=== PATIENT | female | born 1985 | race Two or more races ===

== ENCOUNTER 2024-11-11 18:59 | Emergency (ER) | payer BC, MEDICAID, SELFPAY ==
[2024-11-11] VITALS (18 sets, daily range): BP systolic 121–132; BP diastolic 78–84; PULSE 72–92; RESP 16–97; TEMP 36.4–37.1; O2SAT 93–99; BMI 33.4; BMI 34.4
--- NOTE | 2024-11-11 17:09 | XR_ITS ---
Examination: Complete OB ultrasound greater than 14 weeks Date and time of exam: November 11, 2024 1723 hours INDICATIONS: Patient fell 3 hours ago with decreased movement after falling Findings: Viable intrauterine single fetus with single amniotic sac presentation cephalic spine maternal left Cardiac motion 140 BPM Placenta anterior grade 2 Umbilical cord insertion seen Amniotic fluid index 11.4 cm Cervix 4.2 cm No residual obscured by bowel gas Uterine fundal mass 12.3 x 10.2 x 11.8 cm Composite estimated gestational age based on BPD, head circumference, abdominal circumference, femur length is 37 weeks 0 days Estimated weight 3014 g. Survey of intracranial anatomy, spinal anatomy, abdominal anatomy, four-chamber heart performed with no abnormalities identified. Impression: Viable intrauterine gestation in cephalic presentation
--- NOTE | 2024-11-11 17:09 | XR_ITS ---
Examination: Biophysical profile, ultrasound Date and time of exam: November 11, 2024 1723 hours INDICATIONS: Patient fell 3 hours ago with decreased movement after falling Technique: Multiple transabdominal sonographic images of the pelvis abdomen obtained. Attention is directed to the breathing movement, gross body movement, amniotic fluid volume and tone. Findings: Amniotic fluid index 10.6 cm Total biophysical profile is 8 of 8. breathing movement is 2. Gross body movement is 2. tone is 2. Qualitative amniotic fluid volume is 2 Impression: Biophysical profile is 8 of 8.
--- NOTE | 2024-11-11 19:32 | XR_ITS ---
Examination: Knee, right , 3 views Technique: Knee AP, lateral, oblique 3 views Date and time of exam: November 11, 2024 1948 hours INDICATIONS: Patient fell today with injury to the knee, knee pain. FINDINGS: Large knee effusion No fracture IMPRESSION: No fracture Large knee effusion, seen with internal derangement of the knee
[2024-11-11] MEDS: ACETAMINOPHEN 500 MG TABLET 1000 MG PO (20:02)
--- NOTE | 2024-11-11 20:09 | EDNOTE_ITS ---
<Statement entered by Odette Bernal MD - 11/27/24 07:19> As co-signing physician, I was present and available for consult prn. I concur with the plan and care as documented by the midlevel provider. Lower Extremity Injury RME/HPI General Chief Complaint: Ankle/Foot Injury Stated Complaint: LABOR EVAL Time Seen by Provider: 11/11/24 19:19 Arrival date/time: 11/11/24 18:59 This is a 38-year-old female that comes in with complaints of falling to her right knee. Patient is 38 weeks . Patient had no loss of consciousness. Patient only complains of right knee pain. Patient went to OB first and everything okay with the baby. Related Data Home Medications ?Medication ?Instructions ?Recorded ?Confirmed vits no.130-ferrous fum 1 tab PO QDAY 5 11/11/24 27 mg iron-folic acid 800 mcg tablet ( Vitamin) Allergies Allergy/AdvReac Type Severity Reaction Status Date / Time No Known Allergies Allergy Verified 11/11/24 16:59 Review of Systems Review of Systems Systems Reviewed: All systems reviewed, normal except as documented Past Medical History Past Medical History Comments PMH COMMENT: none ED Exam General General appearance: Present alert and in no apparent distress Head Head exam: Present atraumatic Eye Eye exam: Present normal appearance, PERRL and EOMI ENT ENT exam: Present normal exam, normal oropharynx and mucous membranes moist Neck Neck exam: Present normal inspection, full ROM and trachea midline Chest Chest inspection: Present normal inspection and symmetric chest wall rise Respiratory Respiratory exam: Present normal lung sounds bilaterally Cardiovascular Cardiovascular exam: Present regular rate and normal heart sounds Abdominal Exam Abdominal exam: Present soft Extremities Exam Extremities exam: Present full ROM and other (right knee mild swelling, small abrasion ) Back Exam Back exam: Present normal inspection and full ROM Neurological Exam Neurological exam: Present alert, oriented X3 and CN II-XII intact Psychiatric Psychiatric exam: Present normal affect and normal mood Skin Skin exam: Present warm, dry, intact and normal color Course Quality Measures none Orders Category Date Time Status Place in Observation Status Routine Admission 11/11/24 16:40 Active Apply knee immobilizer NOW Care 11/11/24 20:29 Completed Non-Stress Test NOW Care 11/11/24 16:40 Completed Sterile Vaginal Exam PRN Care 11/11/24 16:40 Ordered josé wrap [Splint / Immobilizer] STAT Care 11/11/24 20:29 Completed US OB >= 14 weeks Fetus Stat Exams 11/11/24 17:09 Completed US OB biophysical profile Stat Exams 11/11/24 17:09 Completed XR knee RT 3V Stat Exams 11/11/24 19:32 Completed Acetaminophen Tab [Tylenol ES Tab] Med 11/11/24 19:32 Discontinued 1,000 mg PO X1 ONE Vital Signs Vital signs: Vital Signs Pulse Oximetry (%) 97 11/11/24 16:48 Extremity Injury, Lower MDM Narrative MDM Narrative:: This is a 38-year-old female that comes in with complaints of falling to her right knee. Patient is 38 weeks . Patient had no loss of consciousness. Patient only complains of right knee pain. Patient went to OB first and everything okay with the baby. knee x rays: FINDINGS: Large knee effusion No fracture IMPRESSION: No fracture Large knee effusion, seen with internal derangement of the knee Patient given Tylenol for pain. Discussed case with Dr. BERNAL no drainage of fluid at this time.. Patient instructed to use knee immobilizer josé wrap and ice elevation for pain management. Patient is to follow-up with primary provider in 1 to 2 days. Patient data External records reviewed:: [facility] previous records Clinical information provided by:: patient Social determinants that could affect healthcare access:: none Patient has the following chronic illnesses:: none How is presenting disease/condition affected by chronic disease/condition?: no chronic disease Evaluation data The following diagnostics were reviewed and interpreted by me:: radiology exam(s) Lab and/or radiology exams considered but not ordered:: none Interpretation Summary: see note Medications / Prescriptions Medications or Prescriptions considered but not ordered:: none Medication administrations:: Medication Administration History Discontinued Medications Acetaminophen (Acetaminophen 500 Mg Tablet) 1,000 mg PO X1 ONE Stop: 11/11/24 19:33 Last Admin: 11/11/24 20:02 Dose: 1,000 mg Documented By: CB see mar Consultations Consultation(s) initiated? (list below): No Diagnosis Most likely diagnosis given after review of the tests above:: fracture knee, sprain, contusion Admission Indicated Admission indicated?: not indicated Admission Request Was there a request for admission?: No Disposition Plan Disposition Plan: Discharge Discharge Attestation Discharge Attestation: The patient and all family members were given an opportunity to ask questions and understood the discharge instructions. Discharge instructions specifically effects, indications for sooner follow up or return to the emergency department, and the expected course of current diagnosis. Patient condition: Stable Discharge Plan Plan Patient Disposition: HOME (Self Care) Patient condition on transfer: Stable Prescriptions/Referrals Prescriptions/Med Rec: No Action Vitamin 27 mg iron- 800 mcg tablet 1 tab PO QDAY Referrals: Marcin Perez MD [Primary Care Provider] - In 1 week Problem List Clinical Impression: Contusion of knee, Effusion of knee Patient/Caregiver Discharge Instructions Discharge Activity: activity as tolerated Education Materials: ED Contusion, Lower Extremity, ED RICE Additional Instructions: Ice and elevate right knee. Get plenty of rest. Use Tylenol for pain. Follow- up with primary provider in 1 to 2 days. Come back to the emergency room if symptoms change or worsen Print Language: Peruvian Stand Alone Forms: Amira Award Info., Patient Portal Info Letter PA/LUIS MIGUEL Supervising Physician PA/RAILWAY SIGNALLING ENGINEER Supervising Physician: benjamin
== END 2024-11-11 20:45 | disposition home or self-care (01) ==
LOC: SERX 19:09
PROVIDERS: Emergency Provider Emergency Medicine; PCP Family Medicine
DX: O9A.213 Injury, poisoning and certain other consequences of external causes complicating pregnancy, third trimester (principal); S80.01XA Contusion of right knee, initial encounter; S80.211A Abrasion, right knee, initial encounter; M25.461 Effusion, right knee; W19.XXXA Unspecified fall, initial encounter; Z3A.38 38 weeks gestation of pregnancy
CPT/HCPCS: 59025; 73562; 76805; 76819; 99283; A9270

== ENCOUNTER 2024-11-23 11:40 | Inpatient (IN) | payer BC, MEDICAID, SELFPAY ==
[2024-11-23] VITALS (66 sets, daily range): BP systolic 117–140; BP diastolic 55–89; PULSE 71–101; RESP 18–20; TEMP 36.6–36.8; O2SAT 94–99; BMI 35.2
[2024-11-23 13:26] LABS: Basophils % (Auto) 0 % (0-2.5); Eosinophils # (Auto) 0.1 Thou/mm3 (0.0-0.5); Eosinophils % (Auto) 1 % (0-10); Hematocrit 35.7 % (36.0-46.0); Immature Granulocytes % (Auto) 1 % (0-0); Immature Granulocytes Auto 0.09 Thou/mm3 (0.00-0.00); Lymphocytes # (Auto) 2.1 Thou/mm3 (1.0-4.8); Lymphocytes % (Auto) 22 % (10-50); Mean Corpuscular HGB Conc 36.4 g/dl (31.0-37.0); Mean Corpuscular Volume 91 fL (80-100); Monocytes # (Auto) 0.7 Thou/mm3 (0.0-0.8); Monocytes % (Auto) 7 % (0-12); Neutrophils # (Auto) 6.7 Thou/mm3 (1.8-7.7); Neutrophils % (Auto) 69 % (37-80); Nucleated Red Blood Cell # 0.02 Thou/mm3 (0.00-0.00); Nucleated Red Blood Cell % 0 /100 WBC (0); Platelet Count 317 Thou/mm3 (140-440); RDW Standard Deviation 40.1 fL (36.4-46.3); Red Blood Count 3.94 Miln/mm3 (4.00-5.20); White Blood Count 9.7 Thou/mm3 (3.6-11.0)
--- NOTE | 2024-11-23 13:26 | XR_ITS ---
Examination: age Limited TECHNIQUE: Limited transabdominal sonographic images pelvis Exam date and time: November 23, 2024 1444 hours INDICATIONS: Labor induction today, unknown presentation size and dates FINDINGS: Viable intrauterine gestation cephalic presentation Cardiac motion 136 BPM Estimated weight 3360.6 g Estimated gestational age 37 weeks 5 days IMPRESSION: Viable intrauterine gestation cephalic presentation
--- NOTE | 2024-11-23 14:04 | PD.LDHP ---
Documentation for date of: 11/23/24 OB Labor/Induct. HPI History of Present Illness Chief complaint: 38 y/o AMA 39w 5d presents to L&D for IOL due to AMA : 5 Para: 3 Term pregnancies: 2 pregnancies: 1 Living children: 3 History of Abortions: Spontaneous and Elective: 1 History of Vaginal deliveries: 3 Date of last menstrual period: 03/05/24 LD: 11/25/24 Gestational Age (weeks): 39 Gestational Age (days): 5 Gestational age based on last menstrual period: 37 History of present illness: 38 y/o AMA 39w 5d presents to L&D for IOL due to AMA and high risk for PPH. Pt has a hx of nvdx3 and has a large uterine fibroid 14x 12 x 10 cm. Pt was followed by [facility] and they recommended that pt get induced by 39w 6d. GBS is neg. Cervix is 1/thick-3 vertex, membranes intact. EFW 3200g. History of Present Dating criteria: based on LMP only Adequate Care: Yes Ultrasounds: normal 1st trimester US and normal mid trimester US (Uterine fibroid) Labs Maternal Blood Type: O Pos Labs: Positive: Rubella Titre, Negative: RPR, Hepatitis B, HIV, Chlamydia, Gonorrhea and Group Beta Strep and Unknown: Herpes Type 1, Herpes Type 2 and Covid-19 Review of Systems Review of Systems Systems Reviewed: All systems reviewed, normal except as documented Meds Home Medications and Allergies Home Medications ?Medication ?Instructions ?Recorded ?Confirmed ?Type vits no.130-ferrous fum 1 tab PO QDAY 11/11/24 11/23/24 History 27 mg iron-folic acid 800 mcg tablet ( Vitamin) ferrous sulfate 325 mg (65 mg 325 mg PO .Q DAY 11/23/24 11/23/24 History iron) tablet (FeroSul) Allergies Allergy/AdvReac Type Severity Reaction Status Date / Time azithromycin Allergy Gastrointestinal Verified 11/23/24 13:00 Upset clindamycin Allergy Gastrointestinal Verified 11/23/24 13:00 Upset OB Exam Physical Exam Vital signs: Temp Pulse Resp BP Pulse Ox 97.9 F 81 20 132/84 H 97 11/23/24 12:06 11/23/24 12:06 11/23/24 12:11/23/24 12:06 11/23/24 14:02 Constitutional Constitutional: no acute distress Routine HEENT Exam Head: Present normocephalic and atraumatic Eye: Present EOMI, PERRL and normal accommodation ENT: Present mucous membranes moist Routine Neck Exam Neck: Present full ROM Routine Respiratory Exam Respiratory: Absent respiratory distress Routine Cardiovascular Exam Cardiovascular: Present RRR Routine Abdominal Exam Abdominal: Present soft Comments: Gravid Uterus EFW 3200g Routine Exam External: Present normal urethra appearance; Absent lesions Detailed Labor and Delivery Exam Dilation (cm): 1 Effacement (%): thick Cervix position: posterior station: -3 Consistency: soft Presentation: Vertex Membranes: intact Baseline heart rate: 130 monitor accelerations: 15x15 monitor decelerations: None intermediate variability: Moderate (11-25) Contraction frequency (min): None Routine Extremities Exam Extremities: Present full ROM Routine Back/Spine/Pelvis Exam Back/Spine: Present full ROM Routine Skin Exam Skin: Present intact, dry and warm Routine Neurological Exam Neurological: Present alert, oriented X3 and CN II-XII intact Routine Psychiatric Exam Psychiatric: Present normal affect and normal thought process OB Results Labs 11/23/24 13:00 Labs: Short CBC 11/23/24 Range/Units 13:00 WBC 9.7 (3.6-11.0) Thou/mm3 Hgb 13.0 (12.0-16.0) g/dL Hct 35.7 L (36.0-46.0) % Plt Count 317 (140-440) Thou/mm3 OB Assessment & Plan Assessment and Plan (1) Encounter for induction of labor: Status: Acute (2) AMA (advanced maternal age) primigravida 35+: Status: Acute (3) Uterine fibroid in : Status: Acute (4) with 39 completed weeks gestation: Status: Acute Additional Plan Induction method: per misoprostol protocol Plan: induction, anticipate NVD and consult MD prn Additional Plan Comment: Routine admit orders Start 2nd IV now PPH meds at bedside Ordered 2 units pRBCs on hold Dr. Larios updated Anticipate (2) AMA (advanced maternal age) primigravida 35+ Qualifiers: Trimester: third trimester Qualified Code(s): O09.513 - Supervision of elderly primigravida, third trimester
[2024-11-23 14:06] LABS: Syphilis Nonreactive (Nonreactive)
[2024-11-23] MEDS: MISOPROSTOL 50 mCg TABLET PO ×2 (15:30→20:02)
[2024-11-24] VITALS (80 sets, daily range): BP systolic 90–167; BP diastolic 51–106; PULSE 67–108; RESP 16–20; TEMP 36.5–36.8; O2SAT 82–100
[2024-11-24] MEDS: MISOPROSTOL 50 mCg TABLET PO ×2 (04:14)
--- NOTE | 2024-11-24 07:30 | PD.LDPN ---
Documentation for date of: 11/24/24 OB Labor Progress Note Pain Control Pain control: tolerating well Pelvic Exam Dilation (cm): 4 Effacement (%): 80 station: -2 Amniotic membrane status: Intact Contractions Monitor mode: External (off monitor ) Status status: Category l Assessment and Plan Assessment: induction ongoing Plan OB labor note: begin Pitocin augmentation Comments: Pt has made good cervical change Pt will shower and then plan to AROM Pt will also plan to get an epidural Consult anesthesia for an epidural
--- NOTE | 2024-11-24 08:01 | PD.LDPN ---
Documentation for date of: 11/24/24 OB Labor Progress Note Pain Control Pain control: other (Requesting an epidurl) Pelvic Exam Dilation (cm): 4 Effacement (%): 80 station: -2 Amniotic membrane status: Ruptured (AROM- clear) Contractions Monitor mode: External (off monitor ) Contraction frequency: Irregular Status status: Category l Assessment and Plan Assessment: induction ongoing Plan OB labor note: begin Pitocin augmentation Comments: AROM performed- clear fluids Pt to get an epidural Start pitocin per protocol Anticipate Dr. Larios Updated
[2024-11-24] MEDS: RINGERS LACTATED 1000 ML 1,000 ML 125 ML IV ×2 (08:52→09:59)
[2024-11-24] MEDS: OXYTOCIN in NS 20 units 20 UNIT/1,000 ML BAG 125 UNIT IV ×2 (10:17→16:34)
[2024-11-24] MEDS: TRANEXAMIC ACID 1,000 MG IVPB 1,000 MG/100 ML BAG 200 MG IV ×2 (10:25→12:08)
[2024-11-24] MEDS: MISOPROSTOL 200 mCg TABLET 800 MCG PR (10:26)
[2024-11-24] MEDS: CARBOPROST TROMETH INJ 250 MCG/ML VIAL IM ×2 (10:29→12:57)
[2024-11-24] MEDS: DIPHENOXYLATE/ATROP SULF 1 TAB PO (10:32)
[2024-11-24] MEDS: OXYTOCIN INJ 10 UNIT/ML VIAL IM (10:33)
[2024-11-24] MEDS: ceFAZolin/D5W 2 GM IV 2 GM/100 ML BAG IV (10:41)
[2024-11-24] MEDS: PANTOPRAZOLE INJ 40 MG VIAL IVP (11:09)
[2024-11-24] MEDS: metroNIDAZOLE/NS 500 MG IVPB 500 MG/100 ML BAG 100 MG IV (11:17)
--- NOTE | 2024-11-24 11:23 | PD.LDDELS ---
Data (Cardenas) Data : 5 Para: 3 Term: 3 : 0 : 1 Delivery Data (Cardenas) Labor Data ROM Date: 11/24/24 ROM Time: 08:00 Rupture Type: AROM Amniotic Fluid: Clear Delivery Data Labor Onset Stage 1 Date: 11/24/24 Labor Onset Stage 1 Time: 08:00 Labor Onset Stage 2 Date: 11/24/24 Labor Onset Stage 2 Time: 10:13 Delivery Date: 11/24/24 Delivery Time: 10:15 Gestational age (weeks): 39 Gestational age (days): 5 Placenta Delivery Date: 11/24/24 Placenta Delivery Time: 10:20 Delivered by: Shauna Larios Delivery nurse: Autumn Manzano Delivery Method Delivery: Vaginal Delivery Type: Spontaneous Anesthesia Type Primary Anesthesia: Epidural EBL Estimated blood loss (ml): 1,000 Umbilical Cord Nuchal Cord: x1 Additional Procedures After the delivery of placenta. Patient started bleeding. Bimanual examination revealed an atonic uterus bimanual exam was performed emptying all the clots. Patient has a history of fibroid and is at high risk of hemorrhage given her multiparity. Double IV has already been placed bimanual exam was repeated several ana times and clots were emptied amounting to close to 600 mL. At that point patient was given tranexamic acid x 1, Hemabate x 1, rectal Cytotec 800, IM Pitocin. Because of multiple bimanual examination patient also received cefazolin and Flagyl to prevent infection. CBC and fibrinogen was ordered. Bladder was emptied using a red Kiet. No tears were seen in the perineum. Data (Cardenas) Data Gender: Male Infant Weight Grams: 3360 1 Minute Total: 7 5 Minute Total: 9
[2024-11-24 12:39] LABS: Basophils # (Auto) 0.1 Thou/mm3 (0.0-0.2); Basophils % (Auto) 0 % (0-2.5); Eosinophils % (Auto) 0 % (0-10); Hematocrit 35.7 % (36.0-46.0); Hemoglobin 12.8 g/dL (12.0-16.0); Immature Granulocytes % (Auto) 1 % (0-0); Immature Granulocytes Auto 0.14 Thou/mm3 (0.00-0.00); Lymphocytes # (Auto) 1.2 Thou/mm3 (1.0-4.8); Lymphocytes % (Auto) 6 % (10-50); Mean Corpuscular HGB Conc 35.9 g/dl (31.0-37.0); Mean Corpuscular Hemoglobin 32.4 pg (25.0-35.0); Mean Corpuscular Volume 90 fL (80-100); Monocytes % (Auto) 5 % (0-12); Neutrophils # (Auto) 18.1 Thou/mm3 (1.8-7.7); Neutrophils % (Auto) 88 % (37-80); Nucleated Red Blood Cell % 0 /100 WBC (0); Platelet Count 272 Thou/mm3 (140-440); RDW Standard Deviation 39.8 fL (36.4-46.3); Red Blood Count 3.95 Miln/mm3 (4.00-5.20); White Blood Count 20.6 Thou/mm3 (3.6-11.0)
[2024-11-24 12:59] LABS: Fibrinogen 398 mg/dL (175-375)
--- NOTE | 2024-11-24 13:14 | PC.NURSE ---
Dr. Larios called pt complaining of GI upset after hemabate. Order received for simethicone po x1.
[2024-11-24] MEDS: SIMETHICONE 80 MG CHEW PO (13:32)
[2024-11-24] MEDS: IBUPROFEN TAB 400 MG TABLET 800 MG PO (14:22)
[2024-11-24 17:06] LABS: Basophils % (Auto) 0 % (0-2.5); Eosinophils % (Auto) 0 % (0-10); Hematocrit 32.7 % (36.0-46.0); Hemoglobin 11.8 g/dL (12.0-16.0); Immature Granulocytes % (Auto) 1 % (0-0); Immature Granulocytes Auto 0.16 Thou/mm3 (0.00-0.00); Lymphocytes # (Auto) 1.3 Thou/mm3 (1.0-4.8); Lymphocytes % (Auto) 6 % (10-50); Mean Corpuscular HGB Conc 36.1 g/dl (31.0-37.0); Mean Corpuscular Hemoglobin 32.6 pg (25.0-35.0); Mean Corpuscular Volume 90 fL (80-100); Monocytes # (Auto) 0.7 Thou/mm3 (0.0-0.8); Monocytes % (Auto) 3 % (0-12); Neutrophils # (Auto) 18.8 Thou/mm3 (1.8-7.7); Neutrophils % (Auto) 90 % (37-80); Nucleated Red Blood Cell % 0 /100 WBC (0); Platelet Count 237 Thou/mm3 (140-440); RDW Standard Deviation 39.7 fL (36.4-46.3); Red Blood Count 3.62 Miln/mm3 (4.00-5.20)
[2024-11-25 05:14] VITALS: BP 110/66; PULSE 75; RESP 20; TEMP 36.4; O2SAT 95
[2024-11-25 08:40] VITALS: BP 98/61; PULSE 85; RESP 17; TEMP 36.4; O2SAT 95
--- NOTE | 2024-11-25 10:31 | PD.LDDS ---
DS: Providers Provider Date of admission: 11/23/24 11:40 Primary care physician: Marcin Perez MD Admitting Provider: Shauna Larios MD Attending Provider on Admission: Briseyda Geronimo CNM Consults: 11/24/24 11:20 Referral Routine Comment: Attending Provider on DC: Shauna Larios MD Discharging Provider: Shauna Larios MD DS: Diagnosis Problem List Completed Was Problem List Reviewed/Reconciled?: Yes Summary/Hosp Course Brief History: 38 y/o AMA status post vaginal delivery at 39w 5d has been doing well. Patient had hemorrhage and was medically managed. Denies any clot has lochia. Status at Discharge Cognitive/behavioral status at discharge: Stable Time Spent with Patient Time attestation: Total time spent providing and/or coordinating discharge services: Exam Vital Signs Temp Pulse Resp BP Pulse Ox O2 Del Method 97.5 F 85 17 98/61 95 Room Air 11/25/24 08:40 11/25/24 08:40 11/25/24 08:40 11/25/24 08:40 11/25/24 08:40 11/25/24 08:40 Constitutional Constitutional: no acute distress Routine HEENT Exam Head: Present normocephalic and atraumatic Eye: Present EOMI and PERRL ENT: Present mucous membranes moist Routine Neck Exam Neck: Present supple and trachea midline Routine Respiratory Exam Respiratory: Present chest non-tender, lungs clear, normal breath sounds and no resp distress Routine Cardiovascular Exam Cardiovascular: Present RRR Routine Abdominal Exam Abdominal: Present soft and normoactive bowel sounds Routine Extremities Exam Extremities: Present full ROM Routine Skin Exam Skin: Present intact, dry and warm Routine Neurological Exam Neurological: Present alert, oriented X3 and CN II-XII intact Routine Psychiatric Exam Psychiatric: Present normal affect and normal thought process Discharge Plan Plan Patient Disposition: HOME (Self Care) Prescriptions/Referrals Prescriptions/Med Rec: New ibuprofen 800 mg tablet 800 mg PO Q8H PRN (Reason: pain) Qty: 30 0RF No Action ferrous sulfate [FeroSul] 325 mg (65 mg iron) tablet 325 mg PO .Q DAY Patient Comments: take 1 tablet by mouth once daily Vitamin 27 mg iron- 800 mcg tablet 1 tab PO QDAY Referrals: Marcin Perez MD [Primary Care Provider] - Patient/Caregiver Discharge Instructions Other Discharge Activity Instructions:: Follow up with OB in 4-6 weeks for check up Education Materials: After a Vaginal , Understanding Blues, Nutrition While Print Language: Ukrainian Stand Alone Forms: Amira Award Info., Patient Portal Info Letter Discharge Order Discharge Orders: Discharge (Routine); Ordered 11/25/24 Ordered By: Shauna Larios Planned Discharge Date 11/25/24
== END 2024-11-25 13:45 | disposition home or self-care (01) | DRG 806 ==
LOC: S4SX 11:41 → S4NX 11-24 12:58
PROVIDERS: Obstetrics & Gynecology; Admitting Provider Student in an Organized Health Care Education/Training Program; PCP Family Medicine; Visit Provider Nurse Practitioner Women's Health
DX: O34.13 Maternal care for benign tumor of corpus uteri, third trimester (principal); O72.1 Other immediate postpartum hemorrhage; Z37.0 Single live birth; Z3A.39 39 weeks gestation of pregnancy; D25.9 Leiomyoma of uterus, unspecified; O69.81X0 Labor and delivery complicated by cord around neck, without compression, not applicable or unspecified
CPT/HCPCS: 36415; 59409; 76815; 85025; 85384; 86780; 86850; 86900; 86901; 86923; 94762; J0689; J2470; J2590; J2795; J3010; J3490; J7120; S0191; A9270; J1836

== ENCOUNTER 2025-01-11 05:35 | Day surgery (SDC) | payer BC, MEDICAID, SELFPAY ==
[2025-01-10 10:47] VITALS: BMI 32.1
[2025-01-10 11:52] LABS: Basophils # (Auto) 0.1 Thou/mm3 (0.0-0.2); Basophils % (Auto) 1 % (0-2.5); Eosinophils # (Auto) 0.4 Thou/mm3 (0.0-0.5); Eosinophils % (Auto) 5 % (0-10); Hematocrit 42.5 % (36.0-46.0); Hemoglobin 14.8 g/dL (12.0-16.0); Immature Granulocytes % (Auto) 0 % (0-0); Immature Granulocytes Auto 0.02 Thou/mm3 (0.00-0.00); Lymphocytes # (Auto) 2.5 Thou/mm3 (1.0-4.8); Lymphocytes % (Auto) 32 % (10-50); Mean Corpuscular HGB Conc 34.8 g/dl (31.0-37.0); Mean Corpuscular Hemoglobin 31.2 pg (25.0-35.0); Mean Corpuscular Volume 90 fL (80-100); Monocytes # (Auto) 0.5 Thou/mm3 (0.0-0.8); Monocytes % (Auto) 6 % (0-12); Neutrophils # (Auto) 4.6 Thou/mm3 (1.8-7.7); Neutrophils % (Auto) 57 % (37-80); Nucleated Red Blood Cell % 0 /100 WBC (0); Platelet Count 298 Thou/mm3 (140-440); RDW Standard Deviation 37.1 fL (36.4-46.3); Red Blood Count 4.75 Miln/mm3 (4.00-5.20); White Blood Count 8.1 Thou/mm3 (3.6-11.0)
[2025-01-10 11:59] LABS: HCG,Qualitative Serum Negative
[2025-01-10 12:00] LABS: Partial Thromboplastin Time 27.6 Seconds (22.0-36.0); Prothrombin Time 10.6 Seconds (9.0-12.2)
[2025-01-10 12:06] LABS: Anion Gap 9 (7-16); BUN/Creatinine Ratio 16 Ratio (12-20); Blood Urea Nitrogen 11 mg/dL (9-23); Calcium 9.5 mg/dL (8.3-10.6); Chloride 103 mMol/L (98-107); Creatinine (Component) 0.7 mg/dL (0.6-1.3); Estimated Creatinine Clearance 131.9 mL/min (>60); Glucose 91 mg/dL (74-106); Osmolality,Calculated 275 (275-295); Potassium 4.1 mMol/L (3.4-5.1); Sodium 138 mMol/L (136-145); eGFR > 60 See Note
--- NOTE | 2025-01-10 13:15 | ESHP_ITS ---
RE: ALVARO ROSARIO : 1985 DATE OF ADMISSION: 01/10/2025 HISTORY OF PRESENT ILLNESS: The patient presented to me with history of pain, swelling, clicking, and locking of the right knee joint. The patient came in my office on 01/10/2025. The patient was seen by me earlier as well. The intensity of pain is 7-8/10. It is affecting her routine daily activities and activities of daily living. The patient wants something to be done about it. PAST MEDICAL HISTORY: The patient has a history of high blood pressure. No history of diabetes mellitus, asthma, seizure, chest pain, myocardial infarction, or bleeding disorder. PAST SURGICAL HISTORY: The patient has fractured left clavicle. DRUG HISTORY: The patient is takin. medication. 2. Iron pill. FAMILY HISTORY AND SOCIAL HISTORY: The patient denies smoking, drinking, and is not working. PHYSICAL EXAMINATION: GENERAL: A rather normal built lady. VITAL SIGNS: Pulse is 70 per minute. Blood pressure is 124/70 mmHg. NECK: Soft, supple. No masses felt. Trachea is centrally placed. CARDIOVASCULAR SYSTEM: First and second heart sounds are normal. No murmur heard. RESPIRATORY SYSTEM: Bilateral vesicular breath sounds. CHEST: Clear. ABDOMEN: Soft. No mass felt. Bowel sounds present. Breast examination is not indicated in this case. The patient is advised to see the family physician for rectal examination. EXTREMITIES: Right knee examination revealed mild swelling. There is 1+ tenderness. Range of motion is 0-115 degrees of flexion. Kelsey's test is positive. Drawer test and Mandeep tests were negative. The patient walks with a limp. DIAGNOSTIC DATA: MRI scan was obtained earlier, which revealed torn meniscus. 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 Since the patient is symptomatic and there is a history of clicking, catching, and locking, therefore, right knee arthroscopy was discussed and advised. Risks with anesthesia was explained and that includes, but not limited to reaction to anesthetic agents, cardiac arrest, and rarely it might be fatal. Risk with operations include infection and if that happens, the patient may need further surgical procedure. Other risks include delayed healing, wound dehiscence, etc. No guarantee is given regarding outcome of the procedure and relief of symptoms. Indeed, if one finds grade 4 or grade 3 chondromalacia, there is good possibility, the patient may continue having pain and the patient is fully aware of that. Accordingly, surgery is booked for 01/11/2025. Appropriate lab work was done. DT: 12:12:31 TT: 13:14:00 Ref: [id number] - TID: [id number]
[2025-01-11] VITALS (8 sets, daily range): BP systolic 102–129; BP diastolic 59–90; PULSE 70–87; RESP 12–16; TEMP 36.1–36.6; O2SAT 90–98; BMI 31.8
--- NOTE | 2025-01-11 07:27 | SUR.PREOP ---
Patient expressed gratitude for prayer before their procedure.
--- NOTE | 2025-01-11 08:36 | PD.SUROPNT ---
Date of Procedure 01/11/25 Pre Op Diagnosis 1. Torn medial meniscus right knee joint 2. Torn lateral meniscus 3 degenerative joint disease changes 4 synovitis with medial plica 5. Lateral subluxation of patella Post Op Diagnosis Same Procedure 1. Partial medial meniscectomy 2 partial lateral meniscectomy 3. Chondroplasty 4. Partial synovectomy including excision plica 5. 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 Patient also has medial plica and medial shelf. Lot of synovitis inflammation was present. There is lateral subluxation of the patella. ACL was partially torn Procedure Description The patient was given general endotracheal anesthesia. Once satisfactory anesthesia was achieved, tourniquet was placed on left upper thigh. Following that the part was thoroughly prepped and draped. After using Esmarch the tourniquet pressure was raised to 350 mmHg. A skin incision was made proximal to lateral tibial plateau and arthroscope was introduced in the usual fashion. Another a skin incision was made in suprapatellar pouch area and outlet was established. The findings were noted as below. In suprapatellar pouch area significant synovial tissue inflammation was present. Medial plica was present as well. The undersurface of patella showed grade 2/3 chondromalacia. The anterior femoral condyle showed grade 3 chondromalacia. Soft tissue impingement was present. Medial shelf was present. The patellar tracking was checked and it was laterally subluxated. The medial compartment showed grade 2/3 chondromalacia for medial tibial plateau and medial femoral condyle. The medial meniscus showed degeneration and tear of the anterior horn and body. Another skin incision was made proximal to medial tibial plateau and a probe was introduced and findings were confirmed. The anterior cruciate ligament was partially torn. The anterior fibers of ACL were torn. The anterior drawer test was performed and found to be good. With the help of probe the integrity was tested and found to be intact. The lateral compartment showed grade III chondromalacia lateral femoral condyle and tibial plateau. Lateral meniscus showed degeneration of the body and anterior horn. A shaver was introduced and shaving of the anterior horn and body of medial meniscus was performed. Soft tissue impingement was shaved off. The shaving of the body and anterior horn of lateral meniscus was done. The chondroplasty of the lateral tibial plateau was performed. The chondroplasty of the patella and and anterior femoral condyle was performed. The soft tissue impingement was shaved off. A partial synovectomy including excision of plica was performed. Following that cauterizer was introduced and lateral release was done. Patellar tracking was done after that and it has improved a lot. Copious amount of irrigation was used to irrigate the knee joint. All the debris were removed. 3-0 Prolene was used to close the wound. About 20 mL of quarter percent Marcaine along with 10 mg of Duramorph was injected. Patient tolerated procedure well. Estimated blood loss was about 2 mL. Prognosis in this case is fair to good. Patient was taken to the recovery room in good condition. Anesthesia GETA Pathology / specimen None Estimated Blood Loss 2 Surgeon Ciaran Mcbride MD Surgical Staff Operation Date: 01/11/25 07:30 Case Staff STOCK PLAN ADMINISTRATOR: Raj Madison RNdoormaker: Veronica Pinto
--- NOTE | 2025-01-11 08:46 | SUR.PHASEI ---
0846: Pt. arrived with oral airway in place, vitals stable, breathing unlabored, no signs of distress, dressing to right knee CDI, no active bleed noted, bilateral dorsalis pedis pulses strong and regular, report received from Aurelio DRAPER and Raj EUBANKS.
[2025-01-11] MEDS: fentaNYL CIT INJ 50 mCg/ML AMP 2ML IV (09:25)
--- NOTE | 2025-01-11 09:50 | SUR.PHASEII ---
0950: Pt. AAOx4, vitals stable, breathing unlabored, no complaint of pain or nausea, dressing to right knee CDI, no active bleed noted, pt. able to move feet, cap refill to bilateral feet less than 3 seconds, bilateral dorsalis pedis pulses strong and regular, pt. tolerated sips of water well, pt. ambulated to wheelchair with steady gait and no assist, no complications. Gave discharge instructions to the pt. and her ride, both verbalized understanding and had no further questions. No complications. Pt. left wtih all personal belongings.
== END 2025-01-11 09:50 | disposition home or self-care (01) ==
PROVIDERS: Anesthesiology; PCP Family Medicine; Referring Provider Orthopaedic Surgery; Visit Provider Orthopaedic Surgery
PROC: (CPT 29870; principal; 2025-01-11 07:30)
DX: S83.241A Other tear of medial meniscus, current injury, right knee, initial encounter (principal); M23.91 Unspecified internal derangement of right knee; M17.11 Unilateral primary osteoarthritis, right knee; M65.90 Unspecified synovitis and tenosynovitis, unspecified site
CPT/HCPCS: 29880; 29875; 36415; 80048; 84703; 85025; 85610; 85730; A4217; A4649; J0131; J2704; J3010